=== PATIENT | female | born 1935 | race African-American/Black ===

== ENCOUNTER 2022-11-14 15:59 | Inpatient (IN) | payer OTHER ==
[2022-11-14 16:42] VITALS: BMI 27.8
[2022-11-14 17:50] LABS: BASO % 0.5 % (0-2.0); EOS % 0.1 % (0-4.5); HEMATOCRIT 31.9 % (32.4-45.2); HEMOGLOBIN 10.3 GM/dL (10.7-15.3); LYMPH % 12.9 % (8-40); MCH 29.2 pg (25.7-33.7); MCHC 32.3 g/dl (32.0-36.0); MEAN CELL VOLUME 90.5 fl (80-96); MEAN PLT VOLUME 10.2 fl (7.5-11.1); MONO % 16.4 % (3.8-10.2); NEUT % 70.1 % (42.8-82.8); RBC 3.53 M/mm3 (3.60-5.2); RDW 13.6 % (11.6-15.6); WHITE BLOOD COUNT 7.2 K/mm3 (4.0-10.0)
[2022-11-14 18:05] LABS: CHLORIDE 108 mmol/L (98-107); SODIUM 148 mmol/L (136-145)
[2022-11-14 18:07] LABS: CALCIUM 9.3 mg/dL (8.5-10.1)
[2022-11-14 18:08] LABS: ALBUMIN 3.1 g/dl (3.4-5.0); ANION GAP 10 MMOL/L (8-16); BLOOD UREA NITROGEN 25.4 mg/dL (7-18); CO2 29 mmol/L (21-32); GLUCOSE,RANDOM 99 mg/dL (74-106)
[2022-11-14 18:11] LABS: CREATININE 1.9 mg/dL (0.55-1.3); SGOT/AST 82 U/L (15-37); SGPT/ALT 58 U/L (13-61)
[2022-11-14 18:13] LABS: BILIRUBIN,TOTAL 0.7 mg/dL (0.2-1); TOT PROT 6.2 g/dl (6.4-8.2)
[2022-11-14 18:14] LABS: ALK PHOS 62 U/L (45-117)
[2022-11-14 18:26] LABS: INR 1.18 (0.83-1.09); PROTHROMBIN TIME (PATIENT) 13.6 SEC (9.7-13.0)
[2022-11-14 18:29] LABS: ACTIVATED PTT 22.2 SECONDS (25.2-36.5)
[2022-11-14 18:32] LABS: ANISOCYTOSIS 1+; MACROCYTOSIS 1+
[2022-11-14 18:33] LABS: PLATELET COUNT 136 10^3/uL (134-434)
[2022-11-14] MEDS ORDERED: SODIUM CHLORIDE 0.9% 1000 ML INFUS.BAG IV ONE (19:20)
[2022-11-14] MEDS ORDERED: SODIUM CHLORIDE 1,000 ML IV SCH (21:00)
[2022-11-14] MEDS ORDERED: ACETAMINOPHEN 325 MG TABLET (FP) PO PRN (21:58)
[2022-11-14] MEDS ORDERED: SODIUM CHLORIDE 0.45% 1,000 ML IV SCH (22:00)
[2022-11-14] MEDS ORDERED: GABAPENTIN 100 MG CAPSULE ONE (22:16)
[2022-11-14] MEDS ORDERED: ATORVASTATIN CA 80 MG TABLET (FP) ONE (22:16)
[2022-11-14] MEDS: GABAPENTIN 100 MG CAPSULE PO SCH (22:22)
[2022-11-14] MEDS: ATORVASTATIN CA 80 MG TABLET (FP) PO SCH (22:22)
[2022-11-14 22:48] LABS: IRON SERUM 19 ug/dL (50-175); RETICULOCYTES 1.01 % (0.5-1.5)
[2022-11-14 22:49] LABS: TOTAL IRON BINDING CAPACITY 181 ug/dL (250-450)
[2022-11-15 00:28] LABS: EPI CELLS 3 /uL (0-25.1); HYALINE CASTS 1 /uL (0-3.1); PH,URINE 5.5 (5.0-8.0); URINE APPEARANCE CLEAR; URINE BACTERIA 39 /uL (0-1359); URINE BILIRUBIN NEGATIVE (NEGATIVE); URINE COLOR YELLOW; URINE GLUCOSE (UA) NEGATIVE (NEGATIVE); URINE KETONE NEGATIVE (NEGATIVE); URINE LEUK ESTERASE NEGATIVE (NEGATIVE); URINE NITRITE NEGATIVE (NEGATIVE); URINE PROTEIN 1+ (NEGATIVE); URINE RBC 8 /uL (0-23.9); URINE UROBILINOGEN 0.2 mg/dL (0.2-1.0); URINE WBC 5 /uL (0-25.8)
[2022-11-15] MEDS ORDERED: GABAPENTIN 100 MG CAPSULE ONE ×2 (05:43→15:06)
[2022-11-15] MEDS: GABAPENTIN 100 MG CAPSULE PO SCH ×3 (05:49→22:22)
[2022-11-15] MEDS ORDERED: IRON SUCROSE INJECTION 100 MG in SODIUM CHLORIDE 95 ML IVPB ONE (06:30)
[2022-11-15 08:00] LABS: BASO % 0.3 % (0-2.0); EOS % 0.4 % (0-4.5); HEMOGLOBIN 11.5 GM/dL (10.7-15.3); LYMPH % 22.2 % (8-40); MCH 29.1 pg (25.7-33.7); MEAN CELL VOLUME 90.8 fl (80-96); MEAN PLT VOLUME 9.9 fl (7.5-11.1); MONO % 12.8 % (3.8-10.2); NEUT % 64.3 % (42.8-82.8); PLATELET COUNT 137 10^3/uL (134-434); RBC 3.96 M/mm3 (3.60-5.2); RDW 13.9 % (11.6-15.6); WHITE BLOOD COUNT 5.4 K/mm3 (4.0-10.0)
[2022-11-15 08:21] LABS: MAGNESIUM 1.9 mg/dL (1.8-2.4)
[2022-11-15 08:22] LABS: CALCIUM 8.8 mg/dL (8.5-10.1)
[2022-11-15 08:24] LABS: CREATININE 1.6 mg/dL (0.55-1.3)
[2022-11-15] MEDS ORDERED: PANTOPRAZOLE 40 MG TABLET PO ONE (09:03)
[2022-11-15] MEDS ORDERED: ARIPiprazole 5 MG TABLET ONE (09:03)
[2022-11-15] MEDS ORDERED: CLOPIDOGREL BISULFATE 75 MG TABLET (FP) ONE (09:03)
[2022-11-15] MEDS ORDERED: VALSARTAN 80 MG TABLET ONE (09:03)
[2022-11-15] MEDS: VALSARTAN 160 MG TABLET PO SCH (09:10)
[2022-11-15] MEDS: PANTOPRAZOLE 40 MG TABLET PO SCH (09:10)
[2022-11-15] MEDS: DONEPEZIL HCL 5 MG TABLET (FP) PO SCH (09:10)
[2022-11-15] MEDS: CLOPIDOGREL BISULFATE 75 MG TABLET (FP) PO SCH (09:10)
[2022-11-15] MEDS ORDERED: SODIUM CHLORIDE 0.45% 1,000 ML IV SCH (09:45)
[2022-11-15] MEDS ORDERED: KCL 10 MEQ IVPB 30 MEQ/300 ML INFUS.BAG IVPB ONE (10:41)
[2022-11-15] MEDS: KCL 10 MEQ IVPB 10 MEQ/100 ML INFUS.BAG IVPB SCH ×3 (10:51→17:01)
[2022-11-15] MEDS: ATORVASTATIN CA 80 MG TABLET (FP) PO SCH (22:22)
[2022-11-15] MEDS ORDERED: SODIUM CHLORIDE 1,000 ML IV SCH (23:30)
[2022-11-16] MEDS: GABAPENTIN 100 MG CAPSULE PO SCH ×3 (06:15→21:52)
[2022-11-16] MEDS ORDERED: SODIUM CHLORIDE 1,000 ML IV SCH (08:08)
[2022-11-16 08:17] LABS: BASO % 0.2 % (0-2.0); EOS % 0.9 % (0-4.5); HEMATOCRIT 36.6 % (32.4-45.2); HEMOGLOBIN 11.8 GM/dL (10.7-15.3); MCH 28.9 pg (25.7-33.7); MCHC 32.1 g/dl (32.0-36.0); MEAN PLT VOLUME 9.9 fl (7.5-11.1); MONO % 11.4 % (3.8-10.2); NEUT % 68.5 % (42.8-82.8); PLATELET COUNT 128 10^3/uL (134-434); RBC 4.07 M/mm3 (3.60-5.2); RDW 13.7 % (11.6-15.6); WHITE BLOOD COUNT 4.4 K/mm3 (4.0-10.0)
[2022-11-16 08:20] LABS: CALCIUM 8.6 mg/dL (8.5-10.1)
[2022-11-16 08:21] LABS: ALBUMIN 3.1 g/dl (3.4-5.0); BLOOD UREA NITROGEN 23.9 mg/dL (7-18)
[2022-11-16 08:24] LABS: CREATININE 1.4 mg/dL (0.55-1.3)
[2022-11-16 08:26] LABS: BILIRUBIN,TOTAL 1.1 mg/dL (0.2-1)
[2022-11-16] MEDS: VALSARTAN 160 MG TABLET PO SCH (10:36)
[2022-11-16] MEDS: PANTOPRAZOLE 40 MG TABLET PO SCH (10:36)
[2022-11-16] MEDS: DONEPEZIL HCL 5 MG TABLET (FP) PO SCH (10:36)
[2022-11-16] MEDS: CLOPIDOGREL BISULFATE 75 MG TABLET (FP) PO SCH (10:36)
[2022-11-16] MEDS ORDERED: POTASSIUM CHLORIDE ORAL LIQUID 20 MEQ/15 ML PO ONE (11:30)
[2022-11-16] MEDS ORDERED: REMDESIVIR 200 MG in SODIUM CHLORIDE 250 ML IVPB ONE (12:00)
[2022-11-16] MEDS: DEXAMETHASONE SOD PHOSPHATE 4 MG/1 ML VIAL IVPUSH SCH (13:29)
[2022-11-16] MEDS: HEPARIN NA (PORCINE) 5,000 UNITS/ML 1ML VIAL SQ SCH ×2 (13:31→21:52)
[2022-11-16] MEDS ORDERED: SODIUM CHLORIDE 1,000 ML with POTASSIUM CHLORIDE 10 MEQ IV SCH (18:40)
[2022-11-16] MEDS: ATORVASTATIN CA 80 MG TABLET (FP) PO SCH (21:52)
[2022-11-16] MEDS: POTASSIUM CHLORIDE 10 MEQ in SODIUM CHLORIDE 1,000 ML IV SCH ×2 (21:57→22:04)
[2022-11-17] MEDS: HEPARIN NA (PORCINE) 5,000 UNITS/ML 1ML VIAL SQ SCH ×3 (06:05→22:38)
[2022-11-17] MEDS: GABAPENTIN 100 MG CAPSULE PO SCH ×3 (06:05→22:39)
[2022-11-17 08:15] LABS: BASO % 0.1 % (0-2.0); EOS % 0.1 % (0-4.5); HEMATOCRIT 35.6 % (32.4-45.2); HEMOGLOBIN 11.5 GM/dL (10.7-15.3); LYMPH % 16.7 % (8-40); MCH 29.2 pg (25.7-33.7); MCHC 32.4 g/dl (32.0-36.0); MEAN CELL VOLUME 90.2 fl (80-96); MEAN PLT VOLUME 10.2 fl (7.5-11.1); MONO % 13.2 % (3.8-10.2); NEUT % 69.9 % (42.8-82.8); PLATELET COUNT 116 10^3/uL (134-434); RBC 3.94 M/mm3 (3.60-5.2); RDW 13.5 % (11.6-15.6); WHITE BLOOD COUNT 3.5 K/mm3 (4.0-10.0)
[2022-11-17 08:26] LABS: MAGNESIUM 1.9 mg/dL (1.8-2.4)
[2022-11-17 08:28] LABS: ALBUMIN 2.9 g/dl (3.4-5.0); BLOOD UREA NITROGEN 22.8 mg/dL (7-18); CALCIUM 8.8 mg/dL (8.5-10.1)
[2022-11-17 08:30] LABS: PHOSPHOROUS 2.4 mg/dL (2.5-4.9)
[2022-11-17 08:32] LABS: CREATININE 1.4 mg/dL (0.55-1.3); TOT PROT 5.8 g/dl (6.4-8.2)
[2022-11-17 08:33] LABS: BILIRUBIN,TOTAL 0.8 mg/dL (0.2-1)
[2022-11-17] MEDS: DEXAMETHASONE SOD PHOSPHATE 4 MG/1 ML VIAL IVPUSH SCH (09:41)
[2022-11-17] MEDS: PANTOPRAZOLE 40 MG TABLET PO SCH (09:43)
[2022-11-17] MEDS: VALSARTAN 160 MG TABLET PO SCH (09:43)
[2022-11-17] MEDS: DONEPEZIL HCL 5 MG TABLET (FP) PO SCH (09:43)
[2022-11-17] MEDS: CLOPIDOGREL BISULFATE 75 MG TABLET (FP) PO SCH (09:43)
[2022-11-17] MEDS: SODIUM CHLORIDE 1,000 ML IV SCH (12:56)
[2022-11-17] MEDS: METOPROLOL TARTRATE 25 MG TABLET (FP) PO SCH ×2 (12:57→22:39)
[2022-11-17] MEDS: NAPH,MB-DB/K PH,MBDB POWDER PACKET PO SCH ×2 (12:57→22:39)
[2022-11-17] MEDS: ATORVASTATIN CA 80 MG TABLET (FP) PO SCH (22:38)
[2022-11-18] MEDS: HEPARIN NA (PORCINE) 5,000 UNITS/ML 1ML VIAL SQ SCH ×3 (06:31→22:15)
[2022-11-18] MEDS: GABAPENTIN 100 MG CAPSULE PO SCH ×3 (06:32→22:16)
[2022-11-18 07:23] LABS: HEMATOCRIT 34.7 % (32.4-45.2); HEMOGLOBIN 11.1 GM/dL (10.7-15.3); MCH 29.2 pg (25.7-33.7); MCHC 32.1 g/dl (32.0-36.0); MEAN CELL VOLUME 90.9 fl (80-96); PLATELET COUNT 112 10^3/uL (134-434); RBC 3.82 M/mm3 (3.60-5.2); RDW 13.8 % (11.6-15.6); WHITE BLOOD COUNT 5.4 K/mm3 (4.0-10.0)
[2022-11-18 07:46] LABS: CALCIUM 8.4 mg/dL (8.5-10.1)
[2022-11-18 07:47] LABS: ALBUMIN 2.7 g/dl (3.4-5.0); BLOOD UREA NITROGEN 24.2 mg/dL (7-18); MAGNESIUM 1.8 mg/dL (1.8-2.4)
[2022-11-18 07:50] LABS: CREATININE 1.4 mg/dL (0.55-1.3); TOT PROT 5.6 g/dl (6.4-8.2)
[2022-11-18 07:52] LABS: BILIRUBIN,TOTAL 0.8 mg/dL (0.2-1)
[2022-11-18] MEDS: NAPH,MB-DB/K PH,MBDB POWDER PACKET PO SCH ×2 (09:51→22:16)
[2022-11-18] MEDS: DONEPEZIL HCL 5 MG TABLET (FP) PO SCH (09:51)
[2022-11-18] MEDS: VALSARTAN 160 MG TABLET PO SCH (09:51)
[2022-11-18] MEDS: PANTOPRAZOLE 40 MG TABLET PO SCH (09:51)
[2022-11-18] MEDS: CLOPIDOGREL BISULFATE 75 MG TABLET (FP) PO SCH (09:52)
[2022-11-18] MEDS: DEXAMETHASONE SOD PHOSPHATE 4 MG/1 ML VIAL IVPUSH SCH (09:52)
[2022-11-18] MEDS: METOPROLOL TARTRATE 25 MG TABLET (FP) PO SCH ×3 (09:53→22:17)
[2022-11-18] MEDS: SODIUM CHLORIDE 1,000 ML IV SCH (10:09)
[2022-11-18] MEDS: SODIUM CHLORIDE 0.45% 1,000 ML IV SCH (12:15)
[2022-11-18] MEDS: ATORVASTATIN CA 80 MG TABLET (FP) PO SCH (22:15)
[2022-11-19] MEDS: HEPARIN NA (PORCINE) 5,000 UNITS/ML 1ML VIAL SQ SCH ×3 (06:31→22:18)
[2022-11-19] MEDS: METOPROLOL TARTRATE 25 MG TABLET (FP) PO SCH ×3 (06:32→22:18)
[2022-11-19] MEDS: GABAPENTIN 100 MG CAPSULE PO SCH ×3 (06:32→22:18)
[2022-11-19 09:08] LABS: ALBUMIN 2.7 g/dl (3.4-5.0); BILIRUBIN,TOTAL 0.8 mg/dL (0.2-1); BLOOD UREA NITROGEN 25.1 mg/dL (7-18); CALCIUM 8.2 mg/dL (8.5-10.1); CREATININE 1.4 mg/dL (0.55-1.3); TOT PROT 5.6 g/dl (6.4-8.2)
[2022-11-19] MEDS: PANTOPRAZOLE 40 MG TABLET PO SCH (09:24)
[2022-11-19] MEDS: DEXAMETHASONE SOD PHOSPHATE 4 MG/1 ML VIAL IVPUSH SCH (09:24)
[2022-11-19] MEDS: VALSARTAN 160 MG TABLET PO SCH (09:24)
[2022-11-19] MEDS: NAPH,MB-DB/K PH,MBDB POWDER PACKET PO SCH ×2 (09:24→22:18)
[2022-11-19] MEDS: CLOPIDOGREL BISULFATE 75 MG TABLET (FP) PO SCH (09:24)
[2022-11-19] MEDS: DONEPEZIL HCL 5 MG TABLET (FP) PO SCH (09:25)
[2022-11-19] MEDS: SODIUM CHLORIDE 0.45% 1,000 ML IV SCH (13:49)
[2022-11-19] MEDS: ATORVASTATIN CA 80 MG TABLET (FP) PO SCH (22:18)
[2022-11-20] MEDS: SODIUM CHLORIDE 0.45% 1,000 ML IV SCH ×2 (03:28→12:17)
[2022-11-20] MEDS: HEPARIN NA (PORCINE) 5,000 UNITS/ML 1ML VIAL SQ SCH ×3 (05:30→21:20)
[2022-11-20] MEDS: GABAPENTIN 100 MG CAPSULE PO SCH ×3 (05:30→21:21)
[2022-11-20 08:39] LABS: HEMOGLOBIN 11.4 GM/dL (10.7-15.3); MCH 29.2 pg (25.7-33.7); MCHC 32.5 g/dl (32.0-36.0); MEAN CELL VOLUME 89.8 fl (80-96); MEAN PLT VOLUME 9.6 fl (7.5-11.1); PLATELET COUNT 126 10^3/uL (134-434); RDW 13.9 % (11.6-15.6); WHITE BLOOD COUNT 7.4 K/mm3 (4.0-10.0)
[2022-11-20 10:21] LABS: ALBUMIN 2.7 g/dl (3.4-5.0); CALCIUM 7.9 mg/dL (8.5-10.1)
[2022-11-20] MEDS: NAPH,MB-DB/K PH,MBDB POWDER PACKET PO SCH ×2 (10:23→21:21)
[2022-11-20] MEDS: CLOPIDOGREL BISULFATE 75 MG TABLET (FP) PO SCH (10:23)
[2022-11-20] MEDS: VALSARTAN 160 MG TABLET PO SCH (10:23)
[2022-11-20] MEDS: DEXAMETHASONE SOD PHOSPHATE 4 MG/1 ML VIAL IVPUSH SCH (10:23)
[2022-11-20] MEDS: METOPROLOL TARTRATE 25 MG TABLET (FP) PO SCH ×2 (10:23→21:20)
[2022-11-20] MEDS: PANTOPRAZOLE 40 MG TABLET PO SCH (10:23)
[2022-11-20] MEDS: DONEPEZIL HCL 5 MG TABLET (FP) PO SCH (10:23)
[2022-11-20 10:24] LABS: CREATININE 1.5 mg/dL (0.55-1.3)
[2022-11-20 10:25] LABS: BILIRUBIN,TOTAL 0.8 mg/dL (0.2-1); TOT PROT 5.2 g/dl (6.4-8.2)
[2022-11-20] MEDS ORDERED: POTASSIUM CHLORIDE TABS 20 MEQ TABLET.ER (FP) PO ONE (11:45)
[2022-11-20] MEDS ORDERED: LACTATED RINGERS SOLUTION 1,000 ML/1,000 ML INFUS.BAG IV SCH ×2 (13:15→13:45)
[2022-11-21] MEDS: HEPARIN NA (PORCINE) 5,000 UNITS/ML 1ML VIAL SQ SCH ×3 (06:14→21:39)
[2022-11-21] MEDS: GABAPENTIN 100 MG CAPSULE PO SCH ×3 (06:14→21:40)
[2022-11-21 09:58] LABS: ALBUMIN 2.8 g/dl (3.4-5.0); BILIRUBIN,TOTAL 1.1 mg/dL (0.2-1); BLOOD UREA NITROGEN 22.7 mg/dL (7-18); CALCIUM 8.4 mg/dL (8.5-10.1); CREATININE 1.5 mg/dL (0.55-1.3); TOT PROT 5.3 g/dl (6.4-8.2)
[2022-11-21] MEDS: VALSARTAN 160 MG TABLET PO SCH (10:43)
[2022-11-21] MEDS: NAPH,MB-DB/K PH,MBDB POWDER PACKET PO SCH ×3 (10:43→23:09)
[2022-11-21] MEDS: CLOPIDOGREL BISULFATE 75 MG TABLET (FP) PO SCH (10:43)
[2022-11-21] MEDS: METOPROLOL TARTRATE 25 MG TABLET (FP) PO SCH ×2 (10:43→21:40)
[2022-11-21] MEDS: DEXAMETHASONE SOD PHOSPHATE 4 MG/1 ML VIAL IVPUSH SCH (10:44)
[2022-11-21] MEDS: PANTOPRAZOLE 40 MG TABLET PO SCH (10:44)
[2022-11-21] MEDS: DONEPEZIL HCL 5 MG TABLET (FP) PO SCH (10:44)
[2022-11-21 14:13] LABS: BILIRUBIN,DIRECT 0.3 mg/dL (0.0-0.2)
[2022-11-21] MEDS ORDERED: SODIUM CHLORIDE 0.45% 1,000 ML IV SCH (15:15)
[2022-11-21 19:05] VITALS: BP 118/74; PULSE 103; TEMP 97.5
[2022-11-21] MEDS ORDERED: RAPID SEQUENCE INTUBATION KIT NR ONE ×2 (22:49→22:50)
[2022-11-21] MEDS ORDERED: NOREPINEPHRINE BITARTRATE/D5W 8 MG/250 ML BAG IVPB SCH (23:45)
[2022-11-21 23:47] VITALS: RESP 20
[2022-11-21] MEDS ORDERED: LACTATED RINGERS SOLUTION 1,000 ML/1,000 ML INFUS.BAG IV STA (23:58)
== END 2022-11-22 01:26 | disposition expired | DRG 208 ==
LOC: JER 15:59 → JERBED 21:04 → J4W 11-15 19:24 → J2W 11-21 23:07
PROVIDERS: ADMIT Internal Medicine; ATTEND Internal Medicine
PROC: XW033E5 Introduction of Remdesivir Anti-infective into Peripheral Vein, Percutaneous Approach, New Technology Group 5 (ICD-10-PCS; 2022-11-14)
PROC: 5A1935Z Respiratory Ventilation, Less than 24 Consecutive Hours (ICD-10-PCS; principal; 2022-11-21)
PROC: 0BH17EZ Insertion of Endotracheal Airway into Trachea, Via Natural or Artificial Opening (ICD-10-PCS; 2022-11-21)
PROC: 5A12012 Performance of Cardiac Output, Single, Manual (ICD-10-PCS; 2022-11-21)
DX: U07.1 COVID-19 (principal); E11.00 Type 2 diabetes mellitus with hyperosmolarity without nonketotic hyperglycemic-hyperosmolar coma (NKHHC); J12.82 Pneumonia due to coronavirus disease 2019; N17.9 Acute kidney failure, unspecified; M62.82 Rhabdomyolysis; E87.0 Hyperosmolality and hypernatremia; I46.9 Cardiac arrest, cause unspecified; I25.10 Atherosclerotic heart disease of native coronary artery without angina pectoris; D69.6 Thrombocytopenia, unspecified; N18.9 Chronic kidney disease, unspecified; I11.0 Hypertensive heart disease with heart failure; F03.90 Unspecified dementia, unspecified severity, without behavioral disturbance, psychotic disturbance, mood disturbance, and anxiety; Z95.5 Presence of coronary angioplasty implant and graft; R00.1 Bradycardia, unspecified; E87.6 Hypokalemia
CPT/HCPCS: 0241U-QW; 36415; 70450-TC; 70551-TC; 71045-TC-FY; 71250-TC; 72125-TC; 76604; 76700-TC; 76705-TC; 80053; 81003; 82248; 82550; 82553; 82607; 82728; 82746; 82962; 83540; 83550; 83735; 84100; 84443; 84466; 84484; 85025; 85027; 85045; 85610; 85730; 86140; 86850; 86900; 86901; 93005; 93010; 93306-TC; 93308; 93880-TC; 94002; 97116-GP; 97161-GP; 99285-25; C9399; J1644; J1756